=== PATIENT | male | born 1945 | race Caucasian/White ===

== ENCOUNTER 2022-01-11 21:21 | Emergency (ER) | payer OTHER ==
[~2022-01-11 21:21] MED LIST: BACLOFEN 10MG T10 MG PO
== END 2022-01-11 21:40 | disposition left against medical advice (07) ==
LOC: FER 21:21
DX: R41.82 Altered mental status, unspecified (principal); Z53.21 Procedure and treatment not carried out due to patient leaving prior to being seen by health care provider

== ENCOUNTER 2022-07-15 02:46 | Emergency (ER) | payer OTHER ==
[2022-07-15 03:12] LABS: BASOPHIL 0.5 % (0-2); EOSINOPHIL 2.5 % (0-7); HCT 44.9 % (42.0-52.0); HGB 15.1 g/dl (13.2-18.0); LYMPHOCYTE 27.2 % (15-48); MCH 30.1 pg (25.0-31.0); MCHC 33.6 g/dL (32.0-36.0); MCV 89.4 fL (78.0-100.0); MONOCYTE 9.9 % (0-12); MPV 8.9 fL (6.0-9.5); NEUTROPHIL 59.5 % (41-80); NRBC 0; PLT 189 K/uL (150-400); RBC 5.02 M/uL (4.70-6.00); RDW 14.6 % (11.5-14.0)
[2022-07-15 03:29] LABS: ALBUMIN 3.5 g/dL (3.4-5.0); ALKALINE PHOSHATASE 86 U/L (46-116); ALT 30 U/L (16-63); AST 20 U/L (15-37); BILIRUBIN - TOTAL 0.2 mg/dL (0.2-1.0); BUN 17 mg/dL (7-18); BUN/CREAT RATIO (CALC) 16.3 RATIO; CHLORIDE 108 mmol/L (98-107); CO2 (BICARBONATE) 30 mmol/L (21-32); CREATININE 1.04 mg/dL (0.67-1.17); GLUCOSE 99 mg/dL (74-106); POTASSIUM 3.9 mmol/L (3.5-5.1); TOTAL PROTEIN 7.5 g/dL (6.4-8.2)
[2022-07-15 07:39] LABS: BILIRUBIN NEGATIVE (NEGATIVE); BLOOD NEGATIVE Ery/uL (NEGATIVE); CLARITY CLEAR (CLEAR); COLOR YELLOW (YELLOW); GLUCOSE (U) NORMAL (NORMAL); LEUKOCYTES NEGATIVE Leu/uL (NEGATIVE); NITRITE NEGATIVE (NEGATIVE); PROTEIN NEGATIVE (NEGATIVE); SPECIFIC GRAVITY 1.025 (1.001-1.030); UROBILINOGEN 0.2 mg/dL (0.2-1.0)
[2022-07-15 07:45] LABS: AMPHETAMINES NEGATIVE (NEGATIVE); BARBITURATES NEGATIVE (NEGATIVE); ECSTASY (MDMA) NEGATIVE (NEGATIVE); MARIJUANA (THC) NEGATIVE (NEGATIVE); METHADONE NEGATIVE (NEGATIVE); MUCOUS MODERATE; OPIATES NEGATIVE (NEGATIVE); OXYCODONE NEGATIVE (NEGATIVE)
== END 2022-07-15 08:49 | disposition home or self-care (01) ==
LOC: FER 02:46
PROVIDERS: Emergency Medicine
DX: R41.82 Altered mental status, unspecified (principal); I10 Essential (primary) hypertension; F03.90 Unspecified dementia, unspecified severity, without behavioral disturbance, psychotic disturbance, mood disturbance, and anxiety
CPT/HCPCS: 36415; 70450; 80053; 80305; 81001; 85025; G0480

== ENCOUNTER 2022-07-20 09:25 | Emergency (ER) | payer OTHER ==
[2022-07-20 09:52] LABS: BASOPHIL 0.5 % (0-2); HCT 42.9 % (42.0-52.0); HGB 14.4 g/dl (13.2-18.0); LYMPHOCYTE 19.2 % (15-48); MCH 30.3 pg (25.0-31.0); MCHC 33.6 g/dL (32.0-36.0); MCV 90.3 fL (78.0-100.0); MPV 8.8 fL (6.0-9.5); NEUTROPHIL 73.1 % (41-80); NRBC 0; PLT 179 K/uL (150-400); RBC 4.75 M/uL (4.70-6.00); RDW 14.6 % (11.5-14.0); WBC 8.2 K/uL (4.0-10.5)
[2022-07-20 10:03] LABS: CLARITY CLEAR (CLEAR); COLOR YELLOW (YELLOW)
[2022-07-20 10:04] LABS: BILIRUBIN NEGATIVE (NEGATIVE); BLOOD NEGATIVE Ery/uL (NEGATIVE); GLUCOSE (U) NORMAL (NORMAL); PROTEIN NEGATIVE (NEGATIVE)
[2022-07-20 10:05] LABS: LEUKOCYTES NEGATIVE Leu/uL (NEGATIVE); NITRITE NEGATIVE (NEGATIVE); UROBILINOGEN 0.2 mg/dL (0.2-1.0)
[2022-07-20 10:09] LABS: ALBUMIN 3.5 g/dL (3.4-5.0); BILIRUBIN - TOTAL 0.6 mg/dL (0.2-1.0); BUN/CREAT RATIO (CALC) 12.8 RATIO; CREATININE 0.94 mg/dL (0.67-1.17); GLOBULIN (CALCULATION) 3.7 g/dL; POTASSIUM 3.9 mmol/L (3.5-5.1); TOTAL PROTEIN 7.2 g/dL (6.4-8.2)
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
== END 2022-07-20 10:20 | disposition left against medical advice (07) ==
LOC: FER 09:25
PROVIDERS: Emergency Medicine
DX: Z53.21 Procedure and treatment not carried out due to patient leaving prior to being seen by health care provider (principal)
CPT/HCPCS: 36415; 70450; 71045; 80053; 81003; 85025; 93005